=== PATIENT | female | born 1985 ===

== ENCOUNTER 2017-12-28 10:36 | Inpatient (IN) | payer OTHER | END 2017-12-30 12:31 | disposition HB | DRG 775 | LOC: LDR 10:36 → OB/GYN 23:28 | PROC: 10E0XZZ Delivery of Products of Conception, External Approach (ICD-10-PCS; principal; 2017-12-28) | PROC: 4A1HXCZ Monitoring of Products of Conception, Cardiac Rate, External Approach (ICD-10-PCS; 2017-12-28) | DX: O80 Encounter for full-term uncomplicated delivery (principal); Z37.0 Single live birth; Z3A.38 38 weeks gestation of pregnancy ==

== ENCOUNTER 2018-02-08 08:35 | Inpatient (IN) | payer OTHER ==
[~2018-02-08 08:35] MED LIST: ATABEX EC CAPL1 EACH PO
== END 2018-02-09 16:35 | DRG 744 ==
LOC: CIR.AMB 08:35 → OB/GYN 18:09
PROVIDERS: Obstetrics & Gynecology
PROC: 0UL74CZ Occlusion of Bilateral Fallopian Tubes with Extraluminal Device, Percutaneous Endoscopic Approach (ICD-10-PCS; principal; 2018-02-08 09:15)
DX: Z30.2 Encounter for sterilization (principal); N99.71 Accidental puncture and laceration of a genitourinary system organ or structure during a genitourinary system procedure